=== PATIENT | female | born 1950 | race Caucasian/White ===

== ENCOUNTER 2020-03-31 12:27 | Day surgery (SDC) | payer OTHER, MEDICARE ==
--- NOTE | 2020-03-25 13:30 | HP ---
Admitting History and Physical - Primary Care Physician PCP: Robin Yanez - Admission Chief Complaint: right breast cancer History of Present Illness: Patient is a 69 yo female who noted a mass on self exam sometime in 04/2019. The patient finally underwent a mammo and US on 08/19/19 which was c/w right 10 o'clock spiculated mass measuring 2.7 cm and suspicious axillary tail mass. 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 The patient underwent an MRI on 08/27 which was c/w localized cancer without evidence of contralateral or multifocal dz. The patient then was seen by the medical oncologist and was placed on Femara because she ended up testing COVID positive. The followup MRI done 02/24 revealed the right 10 oclock mass to have decreased to .8cm (2.6 cm prev) and the axillary mass/node had decreased as well following neoadjuvant chemo. The patient is now presenting for Right breast WE with snbx lymphoscintogram and mag seed localization x 2 (10 oclock and axillary tail). History Source: Patient Limitations to Obtaining History: No Limitations - Past Medical History Cardiovascular: Yes: HTN - Past Surgical History Past Surgical History: Yes: Arthrosocopy (right knee (10 yrs ago)), Cholecystectomy (more then 10 yrs ago) Family Medical History Family Hx Cancer: Father (prostate cancer), Sister (breast cancer at 58) Review of Systems - Review of Systems Constitutional: reports: No Symptoms Cardiovascular: reports: No Symptoms Respiratory: reports: No Symptoms Musculoskeletal: reports: Other (bone pain) Physical Examination Constitutional: Yes: Well Nourished Breast(s): Yes: Other (Ptotic D cup breasts with some flattening laterally on the right breast. There is a palpable mass approx 6 cm clinically. No other suspicious masses or adenopathy noted bilaterally.) Problem List - Problems (1) Breast cancer, right Code(s): C50.911 - MALIGNANT NEOPLASM OF UNSP SITE OF RIGHT FEMALE BREAST Qualifiers: Breast location: upper outer quadrant of breast Estrogen receptor status: positive Patient sex: female Qualified Code(s): C50.411 - Malignant neoplasm of upper-outer quadrant of right female breast; Z17.0 - Estrogen receptor positive status [ER+] Assessment/Plan Right breast WE with sentinel node biopsy (mag seed x 2), lymphoscintogram possible axillary node dissection
[2020-03-28 10:38] VITALS: BMI 35.1
[2020-03-31] MEDS ORDERED: GUM MASTIC/STORAX/MSAL/ALCOHOL 1 DRP DROPSBTL MC ONE (12:37)
[2020-03-31] MEDS ORDERED: ISOSULFAN BLUE 10 MG/ML VIAL SQ ONE (12:37)
[2020-03-31] MEDS ORDERED: BUPIVACAINE HCL/PF 2.5 MG/ML - 30 ML VIAL IJ ONE (12:37)
[2020-03-31] MEDS ORDERED: BUPIVACAINE HCL/PF 0.5% (5MG/ML) 10 ML VIAL ONE (12:37)
[2020-03-31] MEDS ORDERED: LIDOCAINE HCL 1%, 10 MG/ML (20ML VIAL) ONE (12:37)
[2020-03-31] MEDS ORDERED: MIDAZOLAM HCL 2 MG/2 ML SINGLE DOSE VIAL ONE (13:13)
[2020-03-31] MEDS ORDERED: LIDOCAINE HCL/PF 2% SDV 5ML VIAL ONE (13:14)
[2020-03-31] MEDS ORDERED: EPHEDRINE SULFATE/0.9% NACL/PF 50 MG/10 ML SYRINGE NR ONE (13:14)
[2020-03-31] MEDS ORDERED: PROPOFOL 20 ML ONE ×2 (13:14)
[2020-03-31] MEDS ORDERED: ceFAZolin SODIUM 1 GM VIAL ONE (13:32)
[2020-03-31] MEDS ORDERED: DEXAMETHASONE SOD PHOSPHATE 4 MG/1 ML VIAL ONE (13:32)
[2020-03-31] MEDS ORDERED: ONDANSETRON 4 MG/2 ML VIAL ONE (13:32)
[2020-03-31] MEDS ORDERED: KETOROLAC TROMETHAMINE 30 MG/1 ML VIAL ONE (13:32)
[2020-03-31] MEDS ORDERED: KETOROLAC TROMETHAMINE 30 MG/1 ML VIAL IVPUSH PRN (13:54)
[2020-03-31] MEDS ORDERED: ONDANSETRON 4 MG/2 ML VIAL IVPUSH PRN ×2 (13:54→16:15)
[2020-03-31] MEDS ORDERED: DEXTROSE 5%-0.45% SALINE 1,000 ML IV SCH (14:00)
[2020-03-31] MEDS ORDERED: PHENYLEPHRINE HCL 10 MG/1 ML SINGLE DOSE VIAL ONE (14:14)
[2020-03-31] MEDS ORDERED: GLYCOPYRROLATE 0.2 MG/1 ML VIAL ONE (14:18)
[2020-03-31] MEDS ORDERED: BUPIVACAINE HCL/PF 0.25% (2.5MG/ML) 10 ML VIAL IJ ONE ×2 (14:29)
[2020-03-31] MEDS ORDERED: MINERAL OIL/PETROLATUM,WHITE 3.5 GM TUBE ONE (15:55)
[2020-03-31] MEDS ORDERED: oxyCODONE HCL 5 MG TABLET PO PRN ×2 (16:15)
[2020-03-31] MEDS ORDERED: LACTATED RINGERS SOLUTION 1,000 ML IV SCH (16:15)
[2020-03-31] MEDS ORDERED: ACETAMINOPHEN 325 MG TABLET (FP) PO PRN (16:15)
--- NOTE | 2020-03-31 16:22 | OP ---
Operative Note - Note: Operative Date: 03/31/20 Pre-Operative Diagnosis: Breast cancer Operation: Right breast tissue rearangement and closure s/p partial mastectomy Post-Operative Diagnosis: Same as Pre-op Surgeon: Sadiq More Park Interpreter: Mitch Booker Anesthesiologist/FLY SETTER: Helena Calderon Anesthesia: General Operative Report Dictated: Yes
--- NOTE | 2020-03-31 16:24 | SURG ---
Surgery Slab Lifting Supervisor Note Slab Lifting Supervisor: Mitch Booker PA-C Date of Service: 03/31/20 Diagnosis: Breast cancer Procedure: Right breast tissue rearangement and closure s/p partial mastectomy I was present for the entirety of the operative procedure. For further detail, please refer to operative report. Visit type - Case Type Case Type: Scheduled - Emergency Emergency Visit: No - New patient This patient is new to me today: Yes Date on this admission: 03/31/20 - Critical Care Critical Care patient: No
[2020-03-31 17:30] VITALS: TEMP 97.9
[2020-03-31 17:42] VITALS: BP 134/90; PULSE 80
--- NOTE | 2020-03-31 18:40 | OP ---
DATE OF OPERATION: 03/31/2020 PREOPERATIVE DIAGNOSIS: Right breast cancer, upper outer quadrant, with known metastatic axillary lymph node after neoadjuvant hormonal therapy. POSTOPERATIVE DIAGNOSIS: Right breast cancer, upper outer quadrant, with known metastatic axillary lymph node after neoadjuvant hormonal therapy. PROCEDURE: Right breast partial mastectomy with Magseed placement as well as right axillary sentinel lymph node biopsy and localized axillary lymph node biopsy with Magseed placement and mastopexy procedure by plastic surgery. PRIMARY SURGEON: Ashley Huynh MD. EPIC CUPID ANALYST: OMID Love. Primary surgeon for mastopexy procedure is Ashley More MD, with his bindery assistant OMID Slade. COMPLICATIONS: There were no complications. DESCRIPTION OF PROCEDURE: Briefly, the patient is a 69-year-old female of [place] descent, postmenopausal, whose sister had breast cancer at age 58 and father had prostate cancer. The patient was found to have a density in the upper outer aspect of the right breast, then mammography and ultrasound showed a 2.7-cm cancer in the right breast 10 o'clock region and a suspicious right axillary lymph node. Right breast ultrasound core biopsy showed an infiltrating ductal cancer which was ER/GA positive HER2/sahil negative, and the lymph node also was biopsied showing metastatic cancer. MRI showed the localized cancer and the suspicious node. The patient was seen by medical oncology and was just placed on endocrine therapy with Femara since the patient did end up testing COVID positive. She was kept on endocrine therapy until she eventually did COVID test negative. Followup MRI performed on February 25, 2020, after endocrine therapy, showed significant reduction of the tumor size, now measuring 1 x 1.8 cm. On exam, the patient has ptotic D-cupped breasts but had significant response to endocrine therapy and was seen by plastic surgery for a possible reduction mastopexy at the time of wide excision. The patient understood the need for a sentinel lymph node biopsy as well as localization of the previous positive node. She was brought in for the partial mastectomy on March 31, 2020. She first went to [facility] where lymphoscintigraphy was performed, and she had Magseed placement into the right breast cancer as well as the previous biopsied right axillary lymph node. She was then brought to the [facility] holding area. In the holding area, site verification was made and informed consent was obtained. She was marked preoperatively by the plastic surgeon and did undergo COVID testing, which was negative. She was brought into the operating room and laid on the OR table in the supine position. Venodynes were placed on the lower extremities prior to induction. She received 2 g of Ancef prior to incision. She underwent general anesthesia, and the right breast was sterilely prepped and draped in the usual fashion. Then 3 mL of Lymphazurin blue were injected intradermally around the right breast nipple-areolar complex and massage was instituted. A timeout was performed. The right axillary localized lymph node biopsy was performed. Using the Magseed device, we were able to localize the clip in the right axilla. The tissue was removed from around the clip, but there was no increased radioactive counts in this node. There was a blue lymphatic however leading to this area. The node was spent and specimen radiographs showed removal of both clips in question and was sent for frozen section, came back negative. Another lymph node which was in close approximation to the localized lymph node was also removed and sent for frozen section, came back negative. There were no other blue nodes found, and the radioactive dye did not travel into the right axilla. Gross inspection did not show any suspicious palpable nodes. Since both nodes had frozen section which were negative, no further nodes were removed, and hemostasis was achieved, and the wound was closed using interrupted 2-0 plain suture to close the subcutaneous tissue, and then interrupted 3-0 deep dermal Vicryl suture and a running 4-0 subcuticular Biosyn suture to close the skin. At this point, a wide excision is undertaken around the Magseed, which was placed in the upper outer aspect of the right breast in the main cancer. A curvilinear incision was made around the upper outer aspect of the right breast, and dissection was undertaken around the tissue to stay away from the localized seed. Dissection was undertaken all the way down to the pectoralis major muscle. The specimen was completely excised off the pectoralis major muscle, and oriented with a long lateral, short superior suture . Specimen radiographs showed removal of both clips in question. Hemostasis was achieved. At this point, separate margins were taken on the superior, inferior, medial, lateral, deep, and anterior margins with sutures marking the biopsy cavity sides, and each specimen was sent separately to pathology as margins. Hemostasis was achieved, and the wound was copiously irrigated. At this point, Dr. More became the primary surgeon and performed an advancement flap closure of the defect. He undermined the breast tissue, reapproximated it. Closure will be dictated separately by Plastic Surgery. The patient was placed in a compressive bra postoperatively and tolerated the procedure well without difficulty. All sponge, needle counts were correct at the end of the case, and estimated blood loss was about 30 mL. She was hemodynamically stable throughout. The patient will be recovered and discharged home the same day once discharge criteria are met. She is to follow up in the office in 1 week for formal wound and pathology check, and all sponge and needle counts are correct at the end of the case. ASHLEY HUYNH M.D. [id number]
--- NOTE | 2020-04-01 21:08 | OP ---
DATE OF OPERATION: 03/31/2020 SURGEON: Ashley More MD WELDER FABRICATOR SURGEON: Mitch Booker PA-C PREOPERATIVE DIAGNOSES: 1. Right breast cancer. 2. Asymmetry and deformity of right breast after partial mastectomy. POSTOPERATIVE DIAGNOSES: 1. Right breast cancer. 2. Asymmetry and deformity of right breast after partial mastectomy. OPERATIVE PROCEDURE: Reconstruction of the breast with other technique, number [id number] . OPERATIVE INDICATION: Patient is a 69-year-old female who was brought to the operating room by Dr. Ashley Yanez for a large resection of the right breast after cancer was diagnosed and the patient underwent endocrine therapy. She was brought to the operating room today for definitive excision of the large tumor mass on the right breast in the upper lateral quadrant by Dr. Yanez, and she required reconstruction with other technique and rearrangement. OPERATIVE PROCEDURE IN DETAIL: Patient was taken to the operating room after full discussion with the patient of the risks and benefits, surgical versus nonsurgical alternatives as well as material complications including no surgery. At this point, Dr. Yanez performed a right sentinel lymph node biopsy as well as a curvilinear incision in the lateral portion of the upper quadrant of the right breast. He then performed extensive extirpation of the lesion which will be dictated under separate cover. Upon completion of the removal of the large portion of the quadrant of the right breast in the 10 o'clock position, I began the procedure by copiously irrigating the wound and evacuating all clot and performing hemostasis over the entire area. In order to reconstruct the breast with other technique, I made incisions in the superior block of tissue in the extreme upper portion of the breast medially along the breast at the subareolar area and inferiorly in all quadrants, elevating flaps from each of these. These flaps were elevated, hemostasis obtained, and then, advancement flaps were created in a full closure and reconstructive tissue from this area. Advancement flaps were then rotated both inferiorly, laterally, medially, and centrally. Using 2-0 Vicryl sutures in the deepest layer over the pectoralis major muscle, the tissue was approximated in order to close the space. Multiple layers of sutures were carried out with 2-0 Vicryl, and then, a deeper layer of dermis was approximated using 3-0 PDS sutures in interrupted fashion. Release of all contracted areas was carried out under direct vision with a scalpel. Hemostasis again meticulously obtained and then skin and subcutaneous tissue closed with 3-0 PDS in the deep dermis and a subcuticular suture using 3-0 V-Loc. Good shape and contour were seen on the breast. The axillary wound was also closed at this point with 2-0 Vicryl suture in the deep tissue, 3-0 PDS in the deep dermis, and also subcuticular suture with 3-0 V-Loc. Dry sterile dressings with Dermabond, Steri-Strips, and compression were placed. She was awakened, extubated, and transferred to the recovery room in a Surgi-Bra. ASHLEY MORE M.D. [id number]
--- NOTE | 2020-04-06 15:47 | PATH ---
Surgical Pathology Report Patient Name: GO RODRIGUEZ [facility]. Rec. #: [id number] /Age/Gender: 1950 (Age: 69) / F Account: [id number] Location: [facility] Taken: 03/31/2020 Received: 03/31/2020 Reported: 04/06/2020 Physicians: Christopher Parra M.D. Specimen(s) Received A: SENTINEL LYMPH NODE # 1 RIGHT BREAST (FS) B: SENTINEL LYMPH NODE # 2 RIGHT BREAST (FS) C: RIGHT BREAST MEDIAL MARGIN D: RIGHT BREAST LATERAL MARGIN E: RIGHT BREAST INFERIOR MARGIN F: RIGHT BREAST SUPERIOR MARGIN G: RIGHT BREAST DEEP MARGIN H: RIGHT BREAST ANTERIOR MARGIN I: RIGHT BREAST WIDE EXCISION Clinical History Right breast cancer upper outer quadrant status post neoadjuvant hormonal therapy x 6 mo Intraoperative Consult Diagnosis A. Raymond lymph node #1, right breast, frozen section: One lymph node, negative for metastatic carcinoma (metallic clip is identified and extensive dense fibrosis is present). B. Raymond lymph node #2, right breast, frozen section: One lymph node, negative for metastatic carcinoma. Christopher Harrison 03/31/20 Final Diagnosis A. LYMPH NODE, RIGHT BREAST, SENTINEL #1, EXCISION (FS): METASTATIC CARCINOMA, PRESENT IN A DENSELY FIBROTIC BACKGROUND WITH SCANT ASSOCIATED LYMPH NODE TISSUE AND EXTENSION INTO ADIPOSE TISSUE; THE FOCUS OF METASTATIC CARCINOMA MEASURES 2.0 MM IN GREATEST DIMENSION (MICROMETASTASIS). (1/) (SEE NOTE) Note: The focus of metastatic carcinoma is identified on permanent sections and cytokeratin (AE1/3) immunostain. The metastatic carcinoma is difficult to identify on frozen section slides due to the presence of dense fibrosis. This likely represents a focus of extranodal extension as the carcinoma involves adipose tissue. B.LYMPH NODE, RIGHT BREAST, SENTINEL #2, EXCISION (FS): ONE LYMPH NODE, NEGATIVE FOR METASTATIC CARCINOMA ON H&E STAINED SECTIONS AND CYTOKERATIN (AE 1/3) IMMUNOSTAIN. (0/1) C. BREAST, RIGHT, MEDIAL MARGIN, EXCISION: DUCTAL CARCINOMA IN SITU (DCIS), SOLID TYPE, INTERMEDIATE TO HIGH NUCLEAR GRADE PRESENT IN TWO OF THREE SLIDES (2/3). A FEW FOCI OF DCIS ARE CLOSE TO (< 1 MM) THE NEW MARGIN. LYMPHOVASCULAR INVASION IS PRESENT. D. BREAST, RIGHT, LATERAL MARGIN, EXCISION: BENIGN BREAST TISSUE. E. BREAST, RIGHT, INFERIOR MARGIN, EXCISION: DUCTAL CARCINOMA IN SITU (DCIS), SOLID TYPE, INTERMEDIATE NUCLEAR GRADE PRESENT IN THREE OF THREE SLIDES (3/3). A FEW FOCI OF DCIS ARE CLOSE TO (< 1 MM) THE NEW MARGIN. F. BREAST, RIGHT, SUPERIOR MARGIN, EXCISION: BENIGN BREAST TISSUE. G. BREAST, RIGHT, DEEP MARGIN, EXCISION: BENIGN PREDOMINANTLY FATTY BREAST TISSUE AND SKELETAL MUSCLE. H. BREAST, RIGHT, ANTERIOR MARGIN, EXCISION: FOCAL DUCTAL CARCINOMA IN SITU (DCIS), INTERMEDIATE NUCLEAR GRADE PRESENT IN ONE OF THREE SLIDES (1/3). THE FOCUS OF DCIS IS CLOSE TO (< 1 MM) THE NEW MARGIN. I. BREAST, RIGHT, WIDE EXCISION: INVASIVE DUCTAL CARCINOMA, MODERATELY DIFFERENTIATED (TUBULE SCORE: 3/3, NUCLEAR GRADE: 2/3, MITOTIC SCORE: 1/3, TOTAL SCORE: 6/9; ANDERS GRADE 2). THE LARGEST CONTIGUOUS FOCUS OF INVASIVE CARCINOMA MEASURES 1.3 CM IN GREATEST DIMENSION, MICROSCOPICALLY, AND IS PRESENT IN A BACKGROUND OF DENSE HYALINIZING FIBROSIS AND HISTIOCYTIC/GIANT CELL REACTION, CONSISTENT WITH PARTIAL TREATMENT EFFECT. INVASIVE CARCINOMA COMPRISES APPROXIMATELY 30% OF THE TREATED TUMOR BED TISSUE. EXTENSIVE DUCTAL CARCINOMA IN SITU (DCIS), SOLID TYPE, HIGH NUCLEAR GRADE WITH EXTENSIVE NECROSIS AND CALCIFICATIONS IS PRESENT ADMIXED WITH INVASIVE CARCINOMA AND AWAY FROM IT. SURGICAL MARGINS ARE UNINVOLVED BY INVASIVE CARCINOMA; INVASIVE CARCINOMA IS AT 5 MM FROM THE CLOSEST (ANTERIOR AND INFERIOR) MARGINS. DCIS IS CLOSE TO (< 1 MM) THE DEEP MARGIN AT A FEW FOCI AND FOCALLY CLOSE TO ( < 1 MM) THE MEDIAL MARGIN. SEE SPECIMENS C-H FOR FINAL MARGINS. LYMPHOVASCULAR INVASION IS PRESENT. PATHOLOGIC STAGE (ypTNM):ypT1c ypN1mi. SEE ALSO INVASIVE CARCINOMA CASE SUMMARY BELOW. Comments Breast Invasive Carcinoma: Surgical Pathology Case Summary (Based on AJCC TNM 8 th edition) Procedure _X_ Excision (less than total mastectomy) Specimen Laterality _X_ Right Tumor Size _X_ Greatest dimension of largest invasive focus >1 mm (millimeters): 13 mm Histologic Type _X_ Invasive carcinoma of no special type, NOS (ductal) Histologic Grade ([place] Histologic Score) Glandular (Acinar)/Tubular Differentiation _X_ Score 3 (<10% of tumor area forming glandular/tubular structures) Nuclear Pleomorphism _X_ Score 2 Mitotic Rate _X_ Score 1 Overall Grade _X_ Grade 2 (scores of 6 or 7) Tumor Focality _X_ Single focus of invasive carcinoma Ductal Carcinoma In Situ (DCIS) _X_ DCIS is present in specimen _X_ Positive for extensive intraductal component (EIC) Tumor Extension Skin _X_ Skin is not present. Skeletal Muscle _X_ Skeletal muscle is free of carcinoma Margins Invasive Carcinoma Margins _X_ Uninvolved by invasive carcinoma Distance from closest margin (millimeters): 5 mm from inferior and anterior margins in wide excision I; final inferior (E) and anterior (H) margins are uninvolved by carcinoma DCIS Margins _X_ Uninvolved by DCIS Distance from closest margin (millimeters): < 1 mm from final medial (C), inferior (E) and anterior (H) margins Regional Lymph Nodes _X_ Involved by tumor cells Number of Lymph Nodes with Macrometastases (>2 mm): 0 Number of Lymph Nodes with Micrometastases (>0.2 mm to 2 mm and/or >200 cells): 1 Size of Largest Metastatic Deposit (millimeters): 2 mm Extranodal Extension: _X_ Present (see comment) Extent of extranodal extension: _X_ </= 2 mm Comment: The focus of carcinoma is present in association with dense fibrosis and scant lymph node tissue and involves adipose tissue. Treatment Effect in the Breast _X_ Probable or definite response to presurgical therapy in the invasive carcinoma Treatment Effect in the Lymph Nodes _X_ Probable or definite response to presurgical therapy in metastatic carcinoma Lymphovascular Invasion _X_ Present Pathologic Stage Classification (pTNM, AJCC 8th Edition) Primary Tumor (Invasive Carcinoma) (pT) _X_ ypT1c: Tumor >10 mm but =20 mm in greatest dimension Regional Lymph Nodes (pN) Category (pN) _X_ ypN1mi: Micrometastases (approximately 200 cells, larger than 0.2 mm, but none larger than 2.0 mm Biomarker Studies Results of ER and WA studies performed on this specimen (block I5) at [facility] are as follows: ER (clone [id number] mouse monoclonal antibody by [employer]): _X_ Positive: > 95 % nuclear staining with strong intensity PgR (clone16 mouse monoclonal antibody by [employer]): _X_ Negative Results of Her2 (IHC) & Ki-67 studies performed on this specimen (block I5) at [place], [place] ([id number]) are as follows: Her2 IHC (EP3 from [employer], formerly known as [id number], using [employer] Polymer Refine detection kit): 0 (Negative) Ki67: ~5% (low proliferative index) Positive and negative controls (internal if applicable) show appropriate results. Formalin fixation time is within current ASCO/CAP recommendations for ER, PgR and Her2 testing. Time to formalin fixation is not given. Electronically Signed Apolonia Steinberg M.D. Gross Description A.Received fresh for frozen section labeled "sentinel lymph node #1 right breast," is a 1.5 X 0.7 x 0.5 cm lymph node with attached fatty tissue. The lymph node is bisected and a metallic clip is identified. A frozen section is performed on the bisected lymph node. The frozen section residue is entirely submitted in 2 cassettes. B. Received fresh for frozen section labeled "sentinel lymph node #2 right breast," is a 1.2 x 0.8 x 0.5 cm lymph node with attached fatty tissue. The lymph node is bisected and a frozen section is performed on the lymph node. The frozen section residue is entirely submitted in one cassette. C. Received in formalin labeled "right breast medial margin," is a 3.4 x 1.8 x 0.6 cm portion of fibroadipose tissue with a suture marking the biopsy cavity side, per the surgeon. The new margin is inked blue and the specimen is serially sectioned. The specimen is entirely submitted in 3 cassettes. D. Received in formalin labeled "right breast lateral margin," is a 2.5 x 2.3 x 1.0 cm portion of fibroadipose tissue with a suture marking the biopsy cavity side, per the surgeon. The new margin is inked blue and the specimen is serially sectioned. The specimen is entirely submitted in 3 cassettes. E. Received in formalin labeled "right breast inferior margin," the 2.5 x 2.0 x 0.5 cm portion of fibroadipose tissue with a suture marking the biopsy cavity side, per the surgeon. The new margin is inked blue and the specimen is serially sectioned. The specimen is entirely submitted in 3 cassettes. F. Received in formalin labeled "right breast superior margin," is a 2.7 x 2.3 x 0.7 cm portion of fibroadipose tissue with a suture marking the biopsy cavity side, per the surgeon. The new margin is inked blue and the specimen is serially sectioned. The specimen is entirely submitted in 3 cassettes. G. Received in formalin labeled "right breast deep margin," is a 2.4 x 1.3 x 1.1 cm portion of fibroadipose tissue with a suture marking the biopsy cavity side, per the surgeon. The new margin is inked blue and the specimen is serially sectioned. The specimen is entirely submitted in 3 cassettes. H. Received in formalin labeled "right breast superior margin," is a 2.7 x 2.0 x 0.8 cm portion of fibroadipose tissue with a suture marking the biopsy cavity side, per the surgeon. The new margin is inked blue and the specimen is serially sectioned. The specimen is entirely submitted in 3 cassettes. I. Received in formalin, labeled "right breast wide excision," is a 6.5 x 6.3 x 4.0 cm. andrews-yellow, irregular, portion of fibroadipose tissue. There is no needle localization wire present. There is a short suture marking the superior aspect and a long suture marking the lateral aspect, per the surgeon. There is no skin present. The specimen is inked as follows: superior and lateral blue; inferior green; medial yellow; anterior red; deep black. The specimen is serially sectioned from lateral to medial. Sectioning reveals a 1.6 x 1.5 x 1.0 cm andrews, indurated mass. The mass is at 0.7 cm from the deep margin, 0.6 cm from the inferior margin and 0.8 cm from the medial and anterior margins. The remaining margins appear widely clear of the mass. African Studies Professor sections are submitted in 13 cassettes as follows: 4-7-motlawzo and sequentially submitted mass (each with deep margin); 6-8-kvllxryu margin; 5-0-xifierev margin; 10-superior margin; 38-42-cgwsuh margin; 13-lateral margin. Time to formalin fixation: Not given Total formalin fixation time: Approximately 26 hours 04/01/202004/01/2020
== END 2020-03-31 17:55 | disposition home or self-care (01) ==
LOC: FASU 12:27
PROVIDERS: ATTEND Surgery Surgical Oncology
PROC: 0HBU0ZZ Excision of Left Breast, Open Approach (ICD-10-PCS; principal; 2020-03-31 14:17)
PROC: 0HRT07Z Replacement of Right Breast with Autologous Tissue Substitute, Open Approach (ICD-10-PCS; 2020-03-31 14:17)
DX: C50.411 Malignant neoplasm of upper-outer quadrant of right female breast (principal); Z17.0 Estrogen receptor positive status [ER+]; C77.3 Secondary and unspecified malignant neoplasm of axilla and upper limb lymph nodes; I10 Essential (primary) hypertension; N65.1 Disproportion of reconstructed breast
CPT/HCPCS: 19281; 19286; 76098-TC-FY; 78195-TC; 88307-TC; 88331-TC; 88342-TC; 94760; A9541

== ENCOUNTER 2020-04-14 09:33 | Day surgery (SDC) | payer OTHER, MEDICARE ==
[2020-04-12 14:22] VITALS: BMI 35.1
--- NOTE | 2020-04-13 08:47 | HP ---
History & Physical Update - History History: Change (see notes) (Patient was noted to have positive margins on final path and is now presenting for right breast reexcision of positive margins.) - Plan Plan: No Change (Right breast reexcision of positive margins)
[2020-04-14] MEDS ORDERED: BUPIVACAINE HCL/PF 0.25% (2.5MG/ML) 10 ML VIAL ONE (10:20)
--- OUTSIDE RECORDS SUMMARY | 2020-04-14 10:28 | XMS ---
:1950 Author Organization [facility] Support Name Relationship Address Phone RE, RETIRED Unavailable Unavailable Unavailable RE Unavailable Unavailable Unavailable LORETTA RODRIGUEZ [address] [place] [address] Re-disclosure Warning The records that you are about to access may contain information from federally- assisted alcohol or drug abuse programs. If such information is present, then the following federally mandated warning applies: This information has been disclosed to you from records protected by federal confidentiality rules (42 CFR part 2). The federal rules prohibit you from making any further disclosure of this information unless further disclosure is expressly permitted by the written consent of the person to whom it pertains or as otherwise permitted by 42 CFR part 2. A general authorization for the release of medical or other information is NOT sufficient for this purpose. The Federal rules restrict any use of the information to criminally investigate or prosecute any alcohol or drug abuse patient.The records that you are about to access may contain highly sensitive health information, the redisclosure of which is protected by Article 27-F of the [facility] Public Health law. If you continue you may haveaccess to information: Regarding HIV / AIDS; Provided by facilities licensed or operated by the [facility] Office of Mental Health; or Provided by the [facility] Office for People With Developmental Disabilities. If such information is present, then the following [facility] mandated warning applies: This information has been disclosed to you from confidential records which are protected by state law. State law prohibits you from making any further disclosure of this information without the specific written consent of the person to whom it pertains, or as otherwise permitted by law. Any unauthorized further disclosure in violation of state law may result in a fine or long term sentence or both. A general authorization for the release of medical or other information is NOT sufficient authorization for further disclosure. Insurance Providers Payer name Policy type Policy ID Covered Covered republican's Policy P julianna / Coverage republican ID relationship to Jean Inf ormation type jean [facility] [id number] SP [id number] [employer] MEDICARE [id number] SP [id number] E[address] [facility] [id number] SP [id number] [employer] MEDICARE [id number] SP [id number] E[address] [facility] [id number] SP [id number] [employer] [place] [id number] SP [id number] HEALTHCARE (MEDICARE) Results ID Date Data Source [id number] 04/10/2020 12:07:00 PM EDT [facility] Name Value Range Interpretation Description Data Sup porting Code Source(s) Document(s ) SARS [facility] coronavirus 2 RNA This lab was ordered by SUHAIL ontiveros [facility] and reported by [facility]. ID Date Data Source [id number] 03/27/2020 11:25:00 AM EDT [facility] Name Value Range Interpretation Description Data Sup porting Code Source(s) Document(s ) SARS [facility] coronavirus 2 RNA This lab was ordered by [facility] and reported by [facility]. ID Date Data Source [id number] 01/14/2020 12:00:00 AM EDT [facility] Name Value Range Interpretation Code Description Data Naya rce(s) Supporting Document(s ) 2018-nCoV [facility] RNA XXX AN+probe- Imp [facility] and reported by [employer] ID Date Data Source [id number] 01/03/2020 12:00:00 AM EDT [facility] Name Value Range Interpretation Code Description Data Naya rce(s) Supporting Document(s ) 2018-nCoV [facility] RNA XXX AN+probe- Imp This lab was ordered by [facility] Jermaine HERNÁNDEZ and reported by [employer] ID Date Data Source [id number] 12/22/2019 12:00:00 AM EDT [facility] Name Value Range Interpretation Code Description Data Naya rce(s) Supporting Document(s ) 2018-nCoV [facility] RNA XXX AN+probe- Imp This lab was ordered by [facility] Jermaine HERNÁNDEZ and reported by [employer] ID Date Data Source [id number] 12/22/2019 12:00:00 AM EDT [facility] Name Value Range Interpretation Code Description Data Naya rce(s) Supporting Document(s ) 2018-nCoV [facility] RNA XXX AN+probe- Imp This lab was ordered by [facility] [employer] [facility] [employer] FARIHA HERNÁNDEZ and reported by [email or web address]. ID Date Data Source [id number] 12/07/2019 12:00:00 AM EDT [facility] Name Value Range Interpretation Code Description Data Naya rce(s) Supporting Document(s ) nCoV [facility] RNA XXX AN+probe- Imp This lab was ordered by [facility] [employer] [facility] [employer] FARIHA HERNÁNDEZ and reported by [employer] ID Date Data Source [id number] 11/23/2019 12:00:00 AM EDT [facility] Name Value Range Interpretation Code Description Data Naya rce(s) Supporting Document(s ) nCoV [facility] RNA XXX AN+probe- Imp This lab was ordered by [employer] [facility] Jermaine HERNÁNDEZ and reported by [employer] Procedure
[2020-04-14] MEDS ORDERED: ONDANSETRON 4 MG/2 ML VIAL IVPUSH PRN ×2 (10:39→12:14)
[2020-04-14] MEDS ORDERED: KETOROLAC TROMETHAMINE 30 MG/1 ML VIAL IVPUSH PRN (10:39)
[2020-04-14] MEDS ORDERED: DEXTROSE 5%-0.45% SALINE 1,000 ML IV SCH (10:45)
[2020-04-14] MEDS ORDERED: MIDAZOLAM HCL 2 MG/2 ML SINGLE DOSE VIAL ONE (10:52)
[2020-04-14] MEDS ORDERED: PROPOFOL 20 ML ONE (10:53)
[2020-04-14] MEDS ORDERED: BUPIVACAINE HCL/PF 0.25% (2.5MG/ML) 10 ML VIAL IJ ONE (11:53)
[2020-04-14] MEDS ORDERED: oxyCODONE HCL 5 MG TABLET PO PRN (12:14)
[2020-04-14] MEDS ORDERED: PROMETHAZINE HCL 25 MG/1 ML VIAL IVPUSH PRN (12:14)
[2020-04-14] MEDS ORDERED: LACTATED RINGERS SOLUTION 1,000 ML IV SCH (12:15)
--- NOTE | 2020-04-14 12:50 | OP ---
DATE OF OPERATION: 04/14/2020 PREOPERATIVE DIAGNOSIS: Right breast cancer status post wide excision with positive margins. POSTOPERATIVE DIAGNOSIS: Right breast cancer status post wide excision with positive margins. PROCEDURE: Re-excision of margins in the right breast medial, inferior, and anterior regions. ANESTHESIA: General laryngeal mask airway anesthesia. PRIMARY SURGEON: Ashley Yanez MD EXTENSION WORK DIRECTOR: OMID Love COMPLICATIONS: None. HISTORY: The patient is a 69-year-old, G3, P3, postmenopausal female of [place] descent. Her sister had breast cancer and father had prostate cancer. She was found to have a mass in the upper outer aspect of the right breast at the end of 2018, and mammography and ultrasound in July of 2019 showed a 2.7-cm spiculated mass in the right breast upper outer quadrant which was palpable. She had some suspicious axillary lymph nodes, and biopsy of the breast mass showed an intermediate to poorly differentiated invasive duct cancer which was ER/AZ positive, HER-2/sahil negative, and she also had a positive axillary lymph node. MRI showed a localized cancer in the right breast. The patient was sent to medical oncology due to the COVID crisis and placed on Femara. She did end up testing COVID positive and was kept on endocrine therapy with slow decrease in the size of her breast cancer. She eventually tested COVID negative and had a followup MRI showing the cancer now to measure about 8 mm, but on ultrasound it measured about 1.8 cm. It was felt to be localized, and she underwent a right breast partial mastectomy and sentinel lymph node biopsy with localization of the right axillary lymph node on March 31, 2020. Pathology showed the node to be negative on frozen section. Final pathology, however, showed the node to have a small 2-mm micrometastasis. A second sentinel lymph node is negative. The wide excision showed a 1.3-cm moderately differentiated invasive duct cancer which was ER/AZ positive, HER-2/sahil negative. Ki-67 was now low. Unfortunately, she had DCIS very close to the medial, inferior, and anterior margins. The patient comes in now for re-excision of margins. DESCRIPTION OF PROCEDURE: The patient was brought in to ambulatory surgery on April 14, 2020. In the holding area, site verification was made and informed consent was obtained. She underwent COVID testing preoperatively which was negative. She was brought into the operating room and laid on the OR table in a supine position. Venodynes were placed on the lower extremities prior to induction. She underwent general laryngeal mask airway anesthesia. The right breast was sterilely prepped and draped in the usual fashion. Once she was properly anesthetized, the previous upper outer quadrant excision was reopened and the biopsy cavity was entered, with a seroma aspirated. Separate margins were then re-excised on the medial, inferior, and anterior aspects, with sutures making the biopsy cavity side, and each margin was sent separately to pathology in formalin. Hemostasis was achieved, and wound was copiously irrigated with warm sterile saline. The breast tissue was then reapproximated with about an 8 x 10-cm tissue transfer closure, and the breast tissue was reapproximated using 2-0 plain suture. The skin was closed using interrupted 3-0 deep dermal Vicryl suture and a running 4-0 subcuticular Biosyn suture. Mastisol and Steri-Strips were applied over the wound, with a compressive dressing placed over this. She tolerated the procedure well without difficulty. Laryngeal mask airway tube was removed, and she will be recovered in the postanesthesia care unit and discharged home the same day once discharge criteria are met. She is to follow up in the office in 1 week for formal wound pathology check. Again, all sponge and needle counts were correct, and estimated blood loss was minimal at about 10 mL. ASHLEY YANEZ M.D. [id number]
[2020-04-14 13:45] VITALS: TEMP 98.3
[2020-04-14 13:47] VITALS: BP 135/68; PULSE 64
--- NOTE | 2020-04-20 18:38 | PATH ---
Surgical Pathology Report Patient Name: GO RODRIGUEZ [facility]. Rec. #: [id number] /Age/Gender: 1950 (Age: 69) / F Account: [id number] Location: [facility] Taken: 04/14/2020 Received: 04/14/2020 Reported: 04/20/2020 Physicians: Robin Yanez M.D. Specimen(s) Received A: RIGHT BREAST MEDIAL MARGIN B: RIGHT BREAST INFERIOR MARGIN C: RIGHT BREAST ANTERIOR MARGIN Clinical History Reexcision for margins Final Diagnosis A. BREAST, RIGHT, MEDIAL MARGIN, EXCISION: LOBULAR CARCINOMA IN SITU (LCIS), USUAL DUCTAL HYPERPLASIA (UDH), SCLEROSING ADENOSIS, AND CHANGES OF PRIOR BIOPSY. SEE COMMENT. B. BREAST, RIGHT, INFERIOR MARGIN, EXCISION: FOCAL DUCTAL CARCINOMA IN SITU (DCIS), PRESENT IN ONE OF SIX SLIDES. LOBULAR CARCINOMA IN SITU (LCIS). DCIS IS 1 MM FROM NEW MARGIN. CHANGES OF PRIOR BIOPSY. SEE COMMENT. C. BREAST, RIGHT, ANTERIOR MARGIN, EXCISION: INVASIVE LOBULAR CARCINOMA, CLASSICAL TYPE (TUBULE SCORE: 3/3, NUCLEAR GRADE: 2/3, MITOTIC SCORE: 1/3; TOTAL ANDERS SCORE: 6/9). INVASIVE CARCINOMA MEASURES 3 MM IN GREATEST MICROSCOPIC DIMENSION. FOCAL DUCTAL CARCINOMA IN SITU (DCIS), SOLID TYPE, INTERMEDIATE NUCLEAR GRADE, PRESENT IN TWO OF SIX SLIDES. LOBULAR CARCINOMA IN SITU (LCIS). NO LYMPHOVASCULAR INVASION IDENTIFIED. SURGICAL MARGINS ARE UNINVOLVED BY CARCINOMA; INVASIVE CARCINOMA IS 4 MM FROM NEW MARGIN. DCIS IS <1 MM FROM NEW MARGIN. PATHOLOGIC STAGE (pTNM): pT1a. SEE CASE SUMMARY BELOW. SEE COMMENT. Comment: Part A, Immunohistochemical stains (block A3) performed and interpreted at [facility] show the following results: Smooth muscle myosin heavy chain and p63 highlight intact myoepithelial cell layer in the areas of sclerosing adenosis. E-cadherin shows loss of membranous staining in LCIS. Part B, Immunohistochemical stain for E-cadherin (block B3) performed and interpreted at [facility] shows loss of membranous staining in LCIS. Part C, Immunohistochemical stains performed at [place], [place] ([id number]) and interpreted at [facility] show AE1/3 is positive in the invasive carcinoma, while negative for E-cadherin, supportive of lobular phenotype. Myoepithelial markers (p40 and SMM-HC) are negative in the areas of invasive carcinoma, while retained in areas of sclerosing adenosis. No definitive treatment effect is identified in this focus of invasive carcinoma. Case seen in intradepartmental review with consensus on diagnosis. Positive and negative controls (internal if applicable) show appropriate results. Comments Breast Invasive Carcinoma: Surgical Pathology Case Summary (Based on AJCC TNM 8 th edition) Procedure _X_ Excision (less than total mastectomy) Specimen Laterality _X_ Right Tumor Size _X_ Greatest dimension of largest invasive focus >1 mm (millimeters): 3 mm Histologic Type _X_ Invasive lobular carcinoma Histologic Grade (Melvin Histologic Score) Glandular (Acinar)/Tubular Differentiation _X_ Score 3 (<10% of tumor area forming glandular/tubular structures) Nuclear Pleomorphism _X_ Score 2 Mitotic Rate _X_ Score 1 Overall Grade _X_ Grade 2 (scores of 6) Tumor Focality _X_ Single focus of invasive carcinoma Ductal Carcinoma In Situ (DCIS) _X_ DCIS is present in specimen _X_ Negative for extensive intraductal component (EIC) Size (extent) of DCIS: Number of blocks with DCIS: 3 Number of blocks examined: 22 Tumor Extension Skin _X_ Skin is not present. Skeletal Muscle _X_ No skeletal muscle is present. Margins Invasive Carcinoma Margins _X__ Uninvolved by invasive carcinoma Distance from closest margin (millimeters): 4 mm Closest margin: New anterior margin DCIS Margins _X__ Uninvolved by DCIS Distance from closest margin (millimeters): <1 mm from new anterior margin 1 mm from new inferior margin Treatment Effect in the Breast _X_ No definite response to presurgical therapy in the invasive carcinoma (in this focus) Lymphovascular Invasion _X_ Not identified Pathologic Stage Classification (pTNM, AJCC 8th Edition) _X_ pT1a: Tumor >1 mm but =5 mm in greatest dimension (round any measurement >1.0-1.9mm to 2 mm) Regional Lymph Nodes (pN)- see prior specimen for N staging ([id number]) Biomarker Studies Results of ER and ID studies on this specimen (block#C3) performed at [facility], [place], [place] ([id number]) and interpreted at [facility] show: ER (clone [id number] mouse monoclonal antibody by [employer]): _X_ Positive: ~90% nuclear staining with strong intensity PgR (clone16 mouse monoclonal antibody by [employer]): _X_ Negative Results of Her2 and Ki67 studies will be reported separately in an addendum. Positive and negative controls (internal if applicable) show appropriate results. Formalin fixation and cold ischemic times are within current ASCO/CAP recommendations for ER, PgR and Her2 testing. Electronically Signed Vicki Varela M.D. Addendum Reported: 04/21/2020 Addendum Diagnosis Results of Her2 (IHC) & Ki-67 studies performed on block "C3" at [place], [place] ([id number]) are as follows: Her2 IHC (EP3 from [employer], formerly known as [id number], using [employer] Polymer Refine detection kit): 1+ (Negative). Ki-67: ~5% (Low proliferative index). Positive and negative controls (internal if applicable) show appropriate results. Vicki Varela M.D. Gross Description A. Received in formalin labeled "right breast medial margin, suture kenny biopsy cavity site", is a 4.0 x 3.4 x 1.5 cm portion of fibroadipose tissue with a suture marking biopsy cavity side. The new margin is inked blue. The specimen is serially and entirely submitted in 10 cassettes. B. Received in formalin labeled "right breast inferior margin, suture kenny biopsy cavity site" is a 2.5 x 2.5 x 1.4 cm portion of fibroadipose tissue with a suture marking biopsy cavity side. The new margin is inked blue. The specimen is serially sectioned and entirely submitted in 6 cassettes. C. Received in formalin labeled "right breast anterior margin, suture kenny biopsy cavity site ", is a 3.5 x 3.0 x 0.5 cm portion of fibroadipose tissue with a suture marking biopsy cavity side. The new margin is inked blue. The specimen is serially sectioned and entirely submitted in 6 cassettes. Time to formalin fixation: 4 minutes Formalin fixation time: 8 hours KWS/04/15/2020 sulki04/15/2020
== END 2020-04-14 13:40 | disposition home or self-care (01) ==
LOC: FASU 09:33
PROVIDERS: ATTEND Surgery Surgical Oncology
PROC: 0HBT0ZZ Excision of Right Breast, Open Approach (ICD-10-PCS; principal; 2020-04-14 11:15)
DX: C50.911 Malignant neoplasm of unspecified site of right female breast (principal); Z80.3 Family history of malignant neoplasm of breast
CPT/HCPCS: 88307-TC; 88341-TC; 88342-TC; 94760

== ENCOUNTER 2020-04-28 08:49 | Day surgery (SDC) | payer OTHER, MEDICARE ==
--- OUTSIDE RECORDS SUMMARY | 2020-04-21 15:56 | XMS ---
:1950 Author Organization [facility] Support Name Relationship Address Phone RE, RETIRED Unavailable Unavailable Unavailable RE Unavailable Unavailable Unavailable LORETTA RODRIGUEZ [address] [facility] [address] Re-disclosure Warning The records that you are [...] is protected by Article 27-F of the [facility] Public Health law. If you continue you may haveaccess to information: Regarding HIV / AIDS; Provided by facilities licensed or operated by the [facility] Office of Mental Health; or Provided by the [facility] Office for People With Developmental Disabilities. If such information is present, then the following [facility] mandated warning applies: This information has [...] law may result in a fine or skilled nursing sentence or both. A general authorization for the release of medical or other information is NOT sufficient authorization for further disclosure. Insurance Providers Payer name Policy type Policy ID Covered Covered green party's Policy P julianna / Coverage green party ID relationship to Jean Inf ormation type jean [facility] [id number] SP [id number] CARE [employer] MEDICARE [id number] SP [id number] E50 [facility] [id number] SP [id number] C[employer] MEDICARE [id number] SP [id number] E50 [facility] [id number] SP [id number] 4 CARE [employer]IONS [place] [id number] SP [id number] HEALTHCARE (MEDICARE) Results ID Date Data Source [id number] 04/10/2020 12:07:00 PM EDT [facility] Name Value Range Interpretation Description Data Sup porting Code Source(s) Document(s ) SARS [facility] coronavirus 2 RNA This lab was ordered by SUHAIL ontiveros [facility] and reported by [facility]. ID Date Data Source [id number] 03/27/2020 11:25:00 AM EDT [facility] Name Value Range Interpretation Description Data Sup porting Code Source(s) Document(s ) SARS [facility] coronavirus 2 RNA This lab was ordered by [facility] and reported by [facility]. ID Date Data Source [id number] 01/14/2020 12:00:00 AM EDT [facility] Name Value Range Interpretation Code Description Data Naya rce(s) Supporting Document(s ) 2018-nCoV [facility] RNA XXX AN+probe- Imp [facility] and reported by [employer] ID Date Data Source [id number] 01/03/2020 12:00:00 AM EDT [facility] Name Value Range Interpretation Code Description Data Naya rce(s) Supporting Document(s ) 2018-nCoV [facility] RNA XXX AN+probe- Imp This lab was ordered by [facility] Jermaine HERNÁNDEZ and reported by [employer] ID Date Data Source [id number] 12/22/2019 12:00:00 AM EDT [facility] Name Value Range Interpretation Code Description Data Naya rce(s) Supporting Document(s ) 2018-nCoV [facility] RNA XXX AN+probe- Imp This lab was ordered by [facility] Jermaine HERNÁNDEZ and reported by [employer] ID Date Data Source [id number] 12/22/2019 12:00:00 AM EDT [facility] Name Value Range Interpretation Code Description Data Naya rce(s) Supporting Document(s ) 2018-nCoV [facility] RNA XXX AN+probe- Imp This lab was ordered by [facility] [employer] [facility] [employer] FARIHA HERNÁNDEZ and reported by [employer]. ID Date Data Source [id number] 12/07/2019 12:00:00 AM EDT [facility] Name Value Range Interpretation Code Description Data Naya rce(s) Supporting Document(s ) nCoV [facility] RNA XXX AN+probe- Imp This lab was ordered by [facility] [employer] [facility] [employer] FARIHA HERNÁNDEZ and reported by [employer] ID Date Data Source [id number] 11/23/2019 12:00:00 AM EDT [facility] Name Value Range Interpretation Code Description Data Naya rce(s) Supporting Document(s ) nCoV [facility] RNA XXX AN+probe- Imp This lab was ordered by [employer] [facility] Jermaine HERNÁNDEZ and reported by [employer] Procedure
[2020-04-25 12:09] VITALS: BMI 35.1
--- NOTE | 2020-04-26 12:24 | HP ---
Admitting History and Physical - Primary Care Physician PCP: Robin aYnez - Admission Chief Complaint: right breast cancer History of Present Illness: Patient is a 69 yo female S/P Reexcison of positive margins on 04/14 who was noted to have positive margins on final path. The patient is now presenting for completion right mastectomy with reconstruction. History Source: Patient Limitations to Obtaining History: No Limitations - Past Medical History Cardiovascular: Yes: HTN - Past Surgical History Past Surgical History: Yes: Arthrosocopy (right knee (10 yrs ago)), Cholecystectomy (more then 10 yrs ago) - Smoking History Smoking history: Never smoked Have you smoked in the past 12 months: No Home Medications - Allergies Allergies/Adverse Reactions: Allergies Allergy/AdvReac Type Severity Reaction Status Date / Time No Known Allergies Allergy Verified 04/25/20 12:03 - Home Medications Home Medications: Ambulatory Orders Amlodipine Besylate 5 mg PO DAILY 03/28/20 Cetirizine HCl [Zyrtec] 10 mg PO DAILY 03/28/20 Letrozole [Femara -] 2.5 mg PO DAILY 03/28/20 Family Medical History Family Hx Cancer: Father (prostate cancer), Sister (breast cancer at 58) Review of Systems - Review of Systems Constitutional: reports: No Symptoms Cardiovascular: reports: No Symptoms Breasts: reports: See HPI Physical Examination Constitutional: Yes: Well Nourished, Calm Breast(s): Yes: Other (Well healed incision without erythema or discharge noted.) Problem List - Problems (1) Breast cancer, right Code(s): C50.911 - MALIGNANT NEOPLASM OF UNSP SITE OF RIGHT FEMALE BREAST Qualifiers: Breast location: upper outer quadrant of breast Estrogen receptor status: positive Patient sex: female Qualified Code(s): C50.411 - Malignant neoplasm of upper-outer quadrant of right female breast; Z17.0 - Estrogen receptor positive status [ER+] Assessment/Plan Plan: Right breast mastectomy with reconstruction
[~2020-04-28 08:49] MED LIST: BUPIVACAINE HCL/PF 0.25% (2.5MG/ML) 10 ML VIAL IJ ONE; BUPIVACAINE LIPOSOME/PF (EXPAREL) 266 MG/20 ML VIAL NR ONE
[2020-04-28] MEDS ORDERED: ceFAZolin SODIUM 1 GM VIAL ONE ×2 (09:41→10:44)
[2020-04-28] MEDS ORDERED: GENTAMICIN SO4 80 MG/2 ML VIAL ONE (09:41)
[2020-04-28] MEDS ORDERED: BUPIVACAINE HCL/PF 0.25% (2.5MG/ML) 10 ML VIAL ONE (09:41)
[2020-04-28] MEDS ORDERED: SODIUM CHLORIDE 0.9% P/F 10 ML VIAL IJ ONE (09:41)
[2020-04-28] MEDS ORDERED: BUPIVACAINE LIPOSOME/PF (EXPAREL) 266 MG/20 ML VIAL ONE (09:43)
[2020-04-28] MEDS ORDERED: MIDAZOLAM HCL 2 MG/2 ML SINGLE DOSE VIAL ONE (10:03)
[2020-04-28] MEDS ORDERED: fentaNYL CITRATE 250 MCG/5 ML VIAL ONE (10:03)
[2020-04-28] MEDS ORDERED: PROPOFOL 20 ML ONE ×2 (10:16→13:53)
[2020-04-28] MEDS ORDERED: ROCURONIUM BROMIDE 50 MG/5 ML SYRINGE ONE ×2 (10:16→11:22)
[2020-04-28] MEDS ORDERED: ONDANSETRON 4 MG/2 ML VIAL IVPUSH PRN (10:19)
[2020-04-28] MEDS ORDERED: oxyCODONE HCL 5 MG TABLET PO PRN (10:19)
[2020-04-28] MEDS ORDERED: ACETAMINOPHEN 325 MG TABLET (FP) PO PRN (10:19)
[2020-04-28] MEDS ORDERED: DEXTROSE 5%-0.45% SALINE 1,000 ML IV SCH (10:30)
[2020-04-28] MEDS ORDERED: ePHEDrine SULFATE 50 MG/1 ML AMPULE ONE (10:53)
[2020-04-28] MEDS ORDERED: DEXAMETHASONE SOD PHOSPHATE 4 MG/1 ML VIAL ONE ×2 (11:21→13:37)
[2020-04-28] MEDS ORDERED: ONDANSETRON 4 MG/2 ML VIAL ONE ×2 (11:21→13:37)
[2020-04-28] MEDS ORDERED: HYDROmorphone HCL/PF 1 MG/ML VIAL ONE (11:40)
[2020-04-28] MEDS ORDERED: BUPIVACAINE HCL/PF 0.25% (2.5MG/ML) 10 ML VIAL IJ ONE (13:13)
[2020-04-28] MEDS ORDERED: BUPIVACAINE LIPOSOME/PF (EXPAREL) 266 MG/20 ML VIAL NR ONE (13:13)
[2020-04-28] MEDS ORDERED: SUCCINYLCHOLINE CHLORIDE 200 MG/10 ML SYRINGE ONE (13:53)
--- NOTE | 2020-04-28 14:12 | OP ---
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 Spy intraop angio Implants: Sientra allox2 te filled to 480cc Surgeon: Sadiq More Anesthesia: General Estimated Blood Loss (mls): 20 Drains & Tubes with Location: 2 betsy 15 right breast Operative Report Dictated: Yes
[2020-04-28] MEDS ORDERED: LACTATED RINGERS SOLUTION 1,000 ML IV SCH (14:15)
[2020-04-28] MEDS: CEFAZOLIN 1 GM/D5W 1 GM/50 ML BAG IVPB SCH ×2 (16:46→21:11)
--- NOTE | 2020-04-28 17:40 | OP ---
DATE OF OPERATION: 04/28/2020 PREOPERATIVE DIAGNOSIS: Right breast cancer, overlapping regions. POSTOPERATIVE DIAGNOSIS: Right breast cancer, overlapping regions. PROCEDURE: Right breast completion total mastectomy with training developer reconstruction with acellular dermal matrix. ANESTHESIA: General endotracheal anesthesia. PRIMARY SURGEON: Ashley Yanez MD. CAR STOWER: OMID Love. Primary surgeon for the subpectoral training developer reconstruction with acellular dermal matrix is Ashley More M.D. COMPLICATIONS: There were no complications. DESCRIPTION OF PROCEDURE: Briefly, the patient is a 69-year-old G3, P3 female of [place] descent with a family history with her sister had breast cancer and father had prostate cancer. The patient noted a mass in the upper outer aspect of the right breast the end 2018, and mammography and ultrasound showed a spiculated density in the right breast lateral upper outer aspect with some flattening on exam and suspicious nodes. 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 MRI showed the localized cancer with the suspicious lymph node. The patient was seen by medical oncology and due to the COVID crisis, surgery had to be delayed, and she was just placed on Femara. She did herself become COVID positive as well, which eventually resolved. On Femara her tumor decreased in size on MRI to about 8 mm, and on ultrasound measured about 1.8 cm. She was advised on undergoing a partial mastectomy with sentinel lymph node and localized axillary lymph node biopsy which was performed on March 31, 2020, and the node was negative on frozen section, but final pathology showed a 2-mm micro-metastases in the lymph node, and she had a 1.3-cm moderately differentiated invasive duct cancer but had extensive DCIS involving the medial inferior and anterior margins. She was brought back to the operating room on April 14, 2020, for reexcision of margins and did have LCIS still on the medial margin, DCIS which was 1 mm from the inferior margin, but was found to have a separate focus of invasive lobular cancer on the anterior margin with extensive DCIS less than 1 mm from the new margin. The patient was advised on undergoing a completion mastectomy and was seen by Dr. More preoperatively, and it was decided to perform a subpectoral training developer reconstruction. She was brought in for the procedure on April 28, 2020. In the holding area, site verification was made, and informed consent was obtained. She was marked preoperatively by the plastic surgeon. She was brought into the operating room and laid on the OR table in the supine position. Venodynes were placed on the lower extremities prior to induction. She did have COVID testing preoperatively which was negative. She had 2 g of Ancef prior to incision. Both breasts were sterilely prepped and draped in the usual fashion, and once she underwent general endotracheal anesthesia, a timeout was performed. The mastectomy was performed to a periareolar incision with a skin-sparing technique. The entire nipple-areolar complex was removed. Skin flaps were raised superiorly to the level of the clavicle, medially to the level of the sternum, laterally to the level of the latissimus, and inferiorly below the level of inframammary fold. The breast was taken down off the pectoralis major muscle from medial to lateral, completely removed intact. It was oriented with a long lateral, short superior suture. The specimen was then sent down to pathology in formalin. No specimen radiograph was taken since the prior clips had been removed from her prior partial mastectomy. At this point, the wound was copiously irrigated, and hemostasis was achieved. Dr. More then became the primary surgery to perform the subpectoral training developer reconstruction with acellular dermal matrix. The acellular dermal matrix will be sutured into the inferolateral aspect of the pectoralis major muscle. Exparel will be injected along the chest wall for postoperative pain relief and a Remigio drain will be placed around the reconstruction and brought through separate stab incision on the lateral skin flap. All incisions will be closed by plastic surgery. The patient was doing well at this point in the case, and estimated blood loss was about 100 mL. She was hemodynamically stable. At the end of the procedure, she will be extubated and recovered in the post anesthesia care unit and will be admitted postoperatively for pain and wound management. All sponge, needle counts are correct at this point in the case. Of note, we did use the SPY skin perfusion device during the case, which showed good perfusion of the skin flaps. ASHLEY YANEZ M.D. [id number]
[2020-04-28] MEDS: oxyCODONE HCL 5 MG TABLET PO PRN (22:12)
[2020-04-29] MEDS: CEFAZOLIN 1 GM/D5W 1 GM/50 ML BAG IVPB SCH ×2 (02:30→09:13)
[2020-04-29] MEDS: oxyCODONE HCL 5 MG TABLET PO PRN (06:18)
[2020-04-29 07:33] LABS: HEMATOCRIT 34.6 % (32.4-45.2); HEMOGLOBIN 11.1 GM/dl (10.7-15.3); MEAN CELL VOLUME 90.7 fl (80-96); MEAN PLT VOLUME 8.6 fl (7.5-11.1); PLATELET COUNT 269 K/MM3 (134-434); RBC 3.82 M/mm3 (3.60-5.2); RDW 13.3 % (11.6-15.6); WHITE BLOOD COUNT 12.4 K/mm3 (4.0-10.8)
[2020-04-29 09:12] VITALS: BP 177/55; PULSE 90; TEMP 98.4
[2020-04-29] MEDS ORDERED: LORATADINE 10 MG TABLET PO SCH (10:00)
[2020-04-29] MEDS ORDERED: HEPARIN NA (PORCINE) 5,000 UNITS/ML 1ML VIAL SQ SCH (10:00)
[2020-04-29] MEDS ORDERED: amLODIPine BESYLATE 5 MG TABLET (FP) PO SCH (10:00)
[2020-04-29] MEDS ORDERED: CETIRIZINE HCL 10 MG PO SCH (10:00)
[2020-04-29] MEDS ORDERED: LETROZOLE 2.5 MG TABLET (FP) PO SCH (10:00)
--- NOTE | 2020-04-29 11:33 | PN ---
Progress Note (short form) - Note Progress Note: Anesthesia postop note 69 y/o F s/p GA for right mastectomy and reconstruction POD#1, vss, aaox3, no complaints, awaiting discharge. No anesthesia complications.
--- NOTE | 2020-05-04 11:15 | PATH ---
Surgical Pathology Report Patient Name: GO RODRIGUEZ Med. Rec. #: [id number] /Age/Gender: 1950 (Age: 69) / F Account: [id number] Location: [facility] MED-SURG Taken: 04/28/2020 Received: 04/28/2020 Reported: 05/04/2020 Physicians: Robin Yanez M.D. Specimen(s) Received RIGHT BREAST, MASTECTOMY Clinical History Completion mastectomy due to previous positive margins Invasive Ca Final Diagnosis BREAST, RIGHT, TOTAL MASTECTOMY: MINUTE (< 1 MM) FOCUS OF INVASIVE LOBULAR CARCINOMA, CLASSICAL TYPE PRESENT IN THE UPPER OUTER QUADRANT (UOQ) ADJACENT TO PRIOR BIOPSY CAVITY. 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 DCIS IS PRESENT IN ELEVEN OF TWENTY-THREE SLIDES (11/23). EXTENSIVE LOBULAR CARCINOMA IN SITU (LCIS), CLASSICAL TYPE. SURGICAL MARGINS ARE UNINVOLVED BY INVASIVE CARCINOMA AND DCIS. (SEE NOTE) NIPPLE AND SKIN ARE UNINVOLVED BY INVASIVE CARCINOMA AND DCIS. REMAINING BREAST TISSUE SHOWS SCLEROSING ADENOSIS, FLAT EPITHELIAL ATYPIA (FEA) AND CYSTIC APOCRINE METAPLASIA. PATHOLOGIC STAGE (yPTNM): ypT1c(m) ypN1mi.(SEE NOTE) Note: DCIS is at 5 mm from the closest deep margin and at 6 mm from the closest anterior margin. The minute focus of invasive lobular carcinoma is present in a tissue section without ink, however, the focus of invasive carcinoma is at least at 3 mm from the closest transected tissue edge. The "pT" and "pN" stage are based on current specimen and prior right breast and sentinel lymph node excisions ([id number] & [id number]). Electronically Signed Apolonia Steinberg M.D. Gross Description Received in formalin, labeled "right breast mastectomy," is a 1123 gram, 22.0 x 21.0 x 4.5 cm. right mastectomy specimen with a short suture marking the superior aspect and a long suture marking the lateral aspect of the specimen, per the surgeon. The anterior surface displays a 7.0 x 3.0 cm andrews, irregular portion of skin with a 1.1 cm in diameter nipple. The deep margin is inked black and the anterior soft tissue margin is inked blue. The specimen is serially sectioned from lateral to medial. Sectioning reveals an 8 cm in greatest dimension previous biopsy cavity surrounded by firm fibrous tissue and fat necrosis. The cavity is in the upper outer quadrant (UOQ). The remaining breast parenchyma displays abundant white fibrous tissue. No definitive residual masses identified. Expedition Supervisor sections are submitted in twenty-three cassettes as follows: 1-serially sectioned nipple; 2-subareolar shave; 1-4-wsuwhrhs biopsy cavity with anterior soft tissue margin; 6-previous biopsy cavity with deep margin; 6-38-ezqjfiqb from previous biopsy cavity with surrounding fibrous tissue; 83-83-hhlrfwrkjh UOQ; 16-17-lower outer quadrant; 18-19-upper inner quadrant; 20-21-lower inner quadrant; 22-additional deep margin; 23-skin. Time to formalin fixation: 33 minutes Total formalin fixation time: Approximately 29 hours. 04/29/2020 [facility]04/29/2020
--- NOTE | 2020-05-10 11:58 | OP ---
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 POSTOPERATIVE DIAGNOSIS: Right chest wall deformity status post right mastectomy. OPERATIVE PROCEDURE: 1. Right breast reconstruction utilizing immediate insertion of tissue roading engineer, AlloDerm reconstruction. 2. Intravenous injection of indocyanine green dye and intraoperative diagnostic evaluation of noncoronary intraoperative fluorescein vascular angiography x2 as well as interpretation of angiogram intraoperatively. OPERATIVE INDICATION: Patient is a 69-year-old female who was brought to the operating room by Dr. Ashley Yanez for bilateral mastectomy for significant genetic history of breast carcinoma. The patient elected to undergo bilateral mastectomy with the above reconstructive procedure in a prepectoral position. The risks and benefits of surgical versus nonsurgical alternatives as well as material complications were described to the patient on multiple occasions preoperatively. She was marked in the standing position preoperatively in the holding area and all questions were asked and answered. OPERATIVE PROCEDURE IN DETAIL: The patient was taken to the operating room by Dr. Yanez where she was placed supine on the operating room table. Both arms were extended and padded. Venodyne boots were placed and all areas were protected and padded. Dr. Yanez will dictate his portion of the operation under separate cover. At this point Dr. Yanez performed right mastectomy with an inframammary incision on both right and left breasts which will be dictated separately. The weight of the breast was 1100 g. Upon completion of the mastectomy, the wounds were copiously irrigated, and hemostasis was meticulously obtained throughout the pocket and both chest wall. On the back table as the mastectomy was being performed, I created reconstructive procedure by utilizing a full coverage reconstructive tissue roading engineer. Covidien ProGrip mesh was placed in a circular fashion cutting out the mesh slightly larger than the back side of the tissue roading engineer. The gripping portion of the mesh was placed away from the tissue roading engineer in order to adhere to the pectoralis muscle. At this point a sheet of AlloDerm was selected. In this case a 16 x 20 perforated thick AlloDerm was used to cover the anterior surface of the entire tissue roading engineer and then was sutured down to the underlying mesh over the tissue roading engineer and suturing it on the back side. The patient had Cortiva 1-mm tailored allograft, medium sized, placed in subpectoral position. Multiple 2-0 Vicryl sutures were placed around the circumference of the tissue roading engineer creating an entire enclosure for the new tissue roading engineer device. Triple-antibiotic solution and Betadine were used to cover this device and the AlloDerm was soaked in triple-antibiotic solution x3. The device was created on the back table and ready for reconstruction. Once the mastectomy was completed, a Sientra AlloX2 tissue roading engineer placed into the right chest wall and filled to 480 mL and the rim which extended beyond the tissue roading engineer itself was then attached to the chest wall using 0 V-Loc suture in a running fashion from the medial to the lateral side to tack the mesh down to the pectoralis muscle at the inframammary fold and laterally and medially in order to prevent motion of the device. Good shape and contour were seen in the shape of the breast at this point. Skin flaps showed viability. The Spy intraoperative angiogram was performed at this point by injecting 4 mL of indocyanine green dye into the intravascular system and then an intraoperative angiogram was used to show adequate blood flow to the skin and nipple-areolar complex on the chest wall. This was repeated before placement of the tissue roading engineer and then after the tissue roading engineer was placed. Both showed good blood flow. The Spy imaging system was brought into the field. The flowed to the right breast and the nipple-areolar complex, and the entire skin flaps were evaluated and seen to be viable with good blood flow. The skin edges were trimmed. A 15 Remigio drain was threaded through a separate stab wound around the entire circumference of the tissue roading engineer itself and sutured into position. Again, copious irrigation and hemostasis were obtained and then attention was turned to the closure. Using 3-0 PDS suture on the deep dermis and tissue the deep layer was repaired with interrupted sutures and then a 4-0 Biosyn suture was used in a subcuticular fashion to repair the skin. Biopatch and Dermabond with Steri-Strips were placed over the drain and suture line. A compression dressing with fluff dressings, ABD gauze and a Surgi-Bra were placed. She was then awakened, extubated and transferred to the recovery room in satisfactory condition and showed excellent contour and excellent result at this point. ASHLEY MORE M.D. [id number]
== END 2020-04-29 11:45 | disposition home or self-care (01) ==
LOC: FASUSAT 08:49 → FASU 08:49 → FM/S 16:14 → FASUSAT 04-29 11:45
PROVIDERS: ATTEND Surgery Surgical Oncology
PROC: 0HRT0JZ Replacement of Right Breast with Synthetic Substitute, Open Approach (ICD-10-PCS; 2020-04-28)
PROC: 4A1GXSH Monitoring of Skin and Breast Vascular Perfusion using Indocyanine Green Dye, External Approach (ICD-10-PCS; 2020-04-28)
PROC: 0HTT0ZZ Resection of Right Breast, Open Approach (ICD-10-PCS; principal; 2020-04-28 10:55)
PROC: 0HHT0NZ Insertion of Tissue Expander into Right Breast, Open Approach (ICD-10-PCS; 2020-04-28 10:55)
DX: C50.811 Malignant neoplasm of overlapping sites of right female breast (principal); Z17.0 Estrogen receptor positive status [ER+]; I10 Essential (primary) hypertension; M95.4 Acquired deformity of chest and rib
CPT/HCPCS: 15777; 19303; 19357; 92287; L8600; 36415; 85027; 88307-TC; 94760; J1644

== ENCOUNTER → 2020-11-09 | Day surgery (SDC) | payer OTHER, MEDICARE ==
[~2020-11-09] MED LIST changes: -BUPIVACAINE HCL/PF 0.25% (2.5MG/ML) 10 ML VIAL IJ ONE; -BUPIVACAINE LIPOSOME/PF (EXPAREL) 266 MG/20 ML VIAL NR ONE; +SODIUM CHLORIDE 500 ML IV ONE; +ZOLEDRONIC ACID 4 MG in SODIUM CHLORIDE 100 ML IVPB ONE
[2020-11-09 11:39] LABS: BASO % 0.5 % (0-2.0); EOS % 1.2 % (0-4.5); HEMATOCRIT 37.2 % (32.4-45.2); HEMOGLOBIN 12.5 GM/dL (10.7-15.3); LYMPH % 21.5 % (8-40); MCH 29.1 pg (25.7-33.7); MCHC 33.4 g/dl (32.0-36.0); MEAN CELL VOLUME 87.1 fl (80-96); MEAN PLT VOLUME 8.4 fl (7.5-11.1); MONO % 11.1 % (3.8-10.2); NEUT % 65.7 % (42.8-82.8); PLATELET COUNT 222 K/MM3 (134-434); RBC 4.28 M/mm3 (3.60-5.2); RDW 14.7 % (11.6-15.6); WHITE BLOOD COUNT 5.1 K/mm3 (4.0-10.0)
[2020-11-09 12:03] LABS: CALCIUM 9.6 mg/dL (8.5-10.1)
[2020-11-09 12:04] LABS: ALBUMIN 3.6 g/dl (3.4-5.0); BLOOD UREA NITROGEN 8.7 mg/dL (7-18)
[2020-11-09 12:07] LABS: CREATININE 0.7 mg/dL (0.55-1.3)
[2020-11-09 12:09] LABS: BILIRUBIN,TOTAL 1.1 mg/dL (0.2-1); TOT PROT 7.1 g/dl (6.4-8.2)
== END | disposition home or self-care (01) ==
LOC: JONCCHEMO 10:02
PROVIDERS: ATTEND Internal Medicine Hematology & Oncology
DX: Z53.8 Procedure and treatment not carried out for other reasons (principal)
CPT/HCPCS: 36415; 80053; 85025; 96365